=== PATIENT | male | born 1995 | race Caucasian/White ===

== ENCOUNTER 2017-07-14 00:57 | Observation (INO) | payer BC ==
[2017-07-14] VITALS (17 sets, daily range): BP systolic 115–182; BP diastolic 58–96; PULSE 65–136; RESP 16–25; TEMP 98–98.9; O2SAT 97–100
[~2017-07-14] VITALS: Ht 172.7 cm; Wt 58.5 kg
[2017-07-14] MEDS ORDERED: SODIUM CHLORIDE 0.9% FLUSH 10 ML FLUSH IVF PRN (02:30)
[2017-07-14] MEDS ORDERED: ASPIRIN 81 MG CHEW TAB PO ONE (02:30)
[2017-07-14] MEDS ORDERED: SODIUM CHLOR 0.9% 1000 ML INJ 1,000 ML IV ONE (02:30)
--- NOTE | 2017-07-14 02:43 | PD ---
HPI Chief Complaint: Chest Pain Time Seen by Provider: 02:19 Travel History International Travel<30 days: No Contact w/Intl Traveler<30days: No Traveled to known affect area: No History of Present Illness HPI 21-year-old male presents to the emergency department for complaint of chest pain. Patient has no chest pain 1 day. Patient admits to drinking alcohol on smoking cocaine and marijuana over the weekend. Patient states prior to this he has felt well. No prior history of chest pain. Patient also complains of some shortness of breath. Patient recently arrived here from [place]. Patient does note the chest pain seems to worsen with deep respiratory effort. No history of clotting disorder or autoimmune disorder or connective tissue disorder no family history of clotting disorder. No lower extremity pain or swelling. No recent injury or fall or trauma. No fever or chills. No hemoptysis. PFSH Past Medical History Narrative Medical Negative past medical history, tonsillectomy; alcohol use tobacco use substance use; nursing notes reviewed Medical History: Denies Significant Hx Diminished Hearing: No Immunizations Current: Yes Tetanus Vaccination: < 5 Years Influenza Vaccination: No Past Surgical History Tonsillectomy: Yes (AND ADNOIDS) Social History Alcohol Use: Yes Tobacco Use: Yes (CHEWS 1/2 CAN A DAY) Substance Use: Yes Allergies-Medications (Allergen,Severity, Reaction): Coded Allergies: No Known Allergies (Unverified , 07/14/17) Reported Meds & Prescriptions Reported Meds & Active Scripts Active No Active Prescriptions or Reported Medications Review of Systems Except as stated in HPI: all other systems reviewed are Neg Physical Exam Narrative GENERAL: Well-developed well-nourished male in no acute distress no respiratory distress; GCS 15 SKIN: Warm and dry. HEAD: Normocephalic. EYES: No scleral icterus. No injection or drainage. NECK: Supple, trachea midline. No JVD or lymphadenopathy. CARDIOVASCULAR: Increased regular rate and rhythm without murmurs, gallops, or rubs. RESPIRATORY: Breath sounds equal bilaterally. No accessory muscle use. GASTROINTESTINAL: Abdomen soft, non-tender, nondistended. MUSCULOSKELETAL: No cyanosis, or edema. Radial and dorsalis pedis pulses 2+ to palpation bilaterally. No Homans sign no posterior calf cording. BACK: Nontender without obvious deformity. No CVA tenderness. Data Data Last Documented VS Vital Signs Date Time Temp Pulse Resp B/P (MAP) Pulse Ox O2 Delivery O2 Flow Rate FiO2 07/14/17 05:15 87 18 98 Room Air 07/14/17 05:15 123/76 (92) 07/14/17 01:06 98.9 Orders Orders Electrocardiogram (07/14/17 02:19) Basic Metabolic Panel (Bmp) (07/14/17 02:19) Ckmb (Isoenzyme) Profile (07/14/17 02:19) Complete Blood Count With Diff (07/14/17 02:19) D-Dimer (07/14/17 02:19) Magnesium (Mg) (07/14/17 02:19) Prothrombin Time / Inr (Pt) (07/14/17 02:19) Act Partial Throm Time (Ptt) (07/14/17 02:19) Troponin I (07/14/17 02:19) Chest, Single Ap (07/14/17 02:19) Ecg Monitoring (07/14/17 02:19) Bilateral Bp Monitoring (07/14/17 02:19) Iv Access Insert/Monitor (07/14/17 02:19) Oximetry (07/14/17 02:19) Oxygen Administration (07/14/17 02:19) Aspirin Chew (Aspirin Chew) (07/14/17 02:30) Sodium Chloride 0.9% Flush (Ns Flush) (07/14/17 02:30) Sodium Chlor 0.9% 1000 Ml Inj (Ns 1000 M (07/14/17 02:30) Alcohol (Ethanol) (07/14/17 02:19) Drug Screen, Random Urine (07/14/17 02:19) CKMB (07/14/17 02:25) CKMB% (07/14/17 02:25) Ct Thorax/ Chest Wo Iv Contras (07/14/17 ) Place In Observation (07/14/17 ) Vital Signs (Adult) Q4H (07/14/17 05:13) Activity Oob With Assistance (07/14/17 05:13) Door Framer / Telemetry .CONTINUOUS (07/14/17 05:13) Diet Heart Healthy (07/14/17 Breakfast) Sodium Chloride 0.9% Flush (Ns Flush) (07/14/17 05:15) Sodium Chloride 0.9% Flush (Ns Flush) (07/14/17 09:00) Basic Metabolic Panel (Bmp) (07/15/17 06:00) Complete Blood Count With Diff (07/15/17 06:00) Resp Oxygen Danis C Titrat 1-4 L (07/14/17 ) Case Management Consult (07/14/17 05:13) Naloxone Inj (Narcan Inj) (07/14/17 05:15) Admit Order (Ed Use Only) (07/14/17 ) Door Framer / Telemetry AUDI.Q8H (07/14/17 05:28) Diet Npo (07/14/17 Breakfast) Activity Bed Rest (07/14/17 05:28) Notify Dr: Other (07/14/17 05:28) Labs Laboratory Tests Test 07/14/17 02:25 White Blood Count 12.6 TH/MM3 Red Blood Count 5.49 MIL/MM3 Hemoglobin 16.7 GM/DL Hematocrit 47.5 % Mean Corpuscular Volume 86.6 FL Mean Corpuscular Hemoglobin 30.4 PG Mean Corpuscular Hemoglobin Concent 35.1 % Red Cell Distribution Width 12.9 % Platelet Count 385 TH/MM3 Mean Platelet Volume 7.9 FL Neutrophils (%) (Auto) 68.6 % Lymphocytes (%) (Auto) 20.8 % Monocytes (%) (Auto) 9.7 % Eosinophils (%) (Auto) 0.4 % Basophils (%) (Auto) 0.5 % Neutrophils # (Auto) 8.6 TH/MM3 Lymphocytes # (Auto) 2.6 TH/MM3 Monocytes # (Auto) 1.2 TH/MM3 Eosinophils # (Auto) 0.1 TH/MM3 Basophils # (Auto) 0.1 TH/MM3 CBC Comment DIFF FINAL Differential Comment Prothrombin Time 10.7 SEC Prothromb Time International Ratio 1.1 RATIO Activated Partial Thromboplast Time 28.6 SEC D-Dimer Quantitative (PE/DVT) LESS THAN 0.19 MG/L FEU Blood Urea Nitrogen 10 MG/DL Creatinine 0.91 MG/DL Random Glucose 91 MG/DL Calcium Level 10.0 MG/DL Magnesium Level 2.1 MG/DL Sodium Level 136 MEQ/L Potassium Level 3.5 MEQ/L Chloride Level 101 MEQ/L Carbon Dioxide Level 23.9 MEQ/L Anion Gap 11 MEQ/L Estimat Glomerular Filtration Rate 106 ML/MIN Total Creatine Kinase 264 U/L Creatine Kinase MB 2.9 NG/ML Troponin I LESS THAN 0.02 NG/ML Urine Opiates Screen NEG Urine Barbiturates Screen NEG Urine Amphetamines Screen NEG Urine Benzodiazepines Screen NEG Urine Cocaine Screen POS Urine Cannabinoids Screen POS Ethyl Alcohol Level LESS THAN 3 MG/DL MDM Medical Decision Making Medical Screen Exam Complete: Yes Emergency Medical Condition: Yes Medical Record Reviewed: Yes Interpretation(s) EKG: Sinus tachycardia rate [address] elevation injury pattern or ectopy noted Last Impressions Chest X-Ray 07/14/17 0219 Signed Impressions: Service Date/Time: Friday, July 14, 2017 02:28 - CONCLUSION: 1. Findings suggest pneumomediastinum. 2. The lungs are clear. No evidence of pneumothorax. Bryan Frias MD Chest CT 07/14/17 0000 Signed Impressions: Service Date/Time: Friday, July 14, 2017 03:50 - CONCLUSION: 1. Pneumomediastinum. 2. The lungs are clear. No evidence of pneumothorax. Bryan Frias MD CBC & BMP Diagram 07/14/17 02:25 Calcium Level 10.0, Magnesium Level 2.1 Vital Signs Date Time Temp Pulse Resp B/P (MAP) Pulse Ox O2 Delivery O2 Flow Rate FiO2 07/14/17 05:15 87 18 98 Room Air 07/14/17 05:15 87 16 123/76 (92) 98 Room Air 07/14/17 03:25 98 16 135/72 (93) 99 Room Air 07/14/17 02:55 100 18 154/90 (111) 99 Room Air 07/14/17 02:42 102 18 155/81 (105) 99 Room Air 162/85 (110) 07/14/17 02:40 18 99 Room Air 07/14/17 02:40 99 Room Air 07/14/17 02:25 102 18 162/85 (110) 98 Room Air 07/14/17 01:38 107 18 158/95 (116) 99 Room Air 07/14/17 01:32 107 18 99 Room Air 07/14/17 01:06 98.9 136 20 182/96 (124) 99 Urine drug screen positive for cocaine and cannabinoids Troponin I less than 0.02, not elevated D-dimer 0.19, not elevated Differential Diagnosis Chest pain, atypical chest pain, ACS, DC, PE, polysubstance ingestion thorax, pneumonia Narrative Course Patient placed on cardiac cath rn with continuous pulse oximetry IV access obtained specimens collected and sent for resulting Physician Communication Physician Communication discussed with Dr Bustillos--step down admit to [facility] service Diagnosis Primary Impression: Pneumomediastinum Additional Impression: Polysubstance abuse Scripts No Active Prescriptions or Reported Meds Jnenifer Bauman MD Jul 14, 2017 02:43
[2017-07-14 02:50] LABS: AUTOMATED NEUTROPHIL # 8.6 TH/MM3 (1.8-7.7); BASOPHIL # 0.1 TH/MM3 (0-0.2); BASOPHIL % 0.5 % (0.0-2.0); EOSINOPHIL # 0.1 TH/MM3 (0-0.4); EOSINOPHIL % 0.4 % (0.0-4.0); HEMATOCRIT 47.5 % (39.0-51.0); HEMOGLOBIN 16.7 GM/DL (13.0-17.0); LYMPH % 20.8 % (9.0-44.0); LYMPHOCYTE # 2.6 TH/MM3 (1.0-4.8); MEAN CELL VOLUME 86.6 FL (80.0-100.0); MEAN CORPUSCULAR HEMOGLOBIN 30.4 PG (27.0-34.0); MEAN CORPUSCULAR HGB CONC 35.1 % (32.0-36.0); MEAN PLATELET VOLUME 7.9 FL (7.0-11.0); MONO % 9.7 % (0.0-8.0); MONOCYTE # 1.2 TH/MM3 (0-0.9); NEUT % 68.6 % (16.0-70.0); PLATELET COUNT 385 TH/MM3 (150-450); RED BLOOD COUNT 5.49 MIL/MM3 (4.50-5.90); RED CELL DISTRIBUTION WIDTH 12.9 % (11.6-17.2); WHITE BLOOD COUNT 12.6 TH/MM3 (4.0-11.0)
[2017-07-14 02:55] LABS: CHLORIDE 101 MEQ/L (98-107); SODIUM (NA) 136 MEQ/L (136-145)
[2017-07-14 02:59] LABS: BICARBONATE 23.9 MEQ/L (21.0-32.0); BLOOD UREA NITROGEN 10 MG/DL (7-18); GLUCOSE,RANDOM 91 MG/DL (74-106); MAGNESIUM 2.1 MG/DL (1.5-2.5)
[2017-07-14 03:02] LABS: CREATININE 0.91 MG/DL (0.60-1.30); GLOMERULAR FILTRATION RATE 106 ML/MIN (>89)
[2017-07-14 03:07] LABS: TROPONIN I LESS THAN 0.02 NG/ML (0.02-0.05)
[2017-07-14 03:12] LABS: INTERNATIONAL NORMALIZED RATIO 1.1 RATIO; PROTHROMBIN TIME - PATIENT 10.7 SEC (9.8-11.6)
--- NOTE | 2017-07-14 03:16 | RADRPT ---
EXAM DATE/TIME: 07/14/2017 02:28 [facility] COMPARISON: No previous studies available for comparison. INDICATIONS : Chest tightness and shortness of breath. MEDICAL HISTORY : None. SURGICAL HISTORY : None. ENCOUNTER: Initial ACUITY: 1 day PAIN SCORE: 2/10 LOCATION: Bilateral chest FINDINGS: Multiple vertical linear lucencies project over the upper thoracic mediastinum and there appears to b e a pleural reflection tracking along the left heart border. These findings suggest a pneumomediasti num. The lungs are clear. Both hemidiaphragms well delineated. No evidence pneumothorax. The hear t is normal in size. CONCLUSION: 1. Findings suggest pneumomediastinum. 2. The lungs are clear. No evidence of pneumothorax. Bryan Frias MD on July 14, 2017 at 3:13 Board Certified Radiologist. This report was verified electronically.
[2017-07-14 03:26] LABS: D-DIMER LESS THAN 0.19 MG/L FEU (0.00-0.50)
--- NOTE | 2017-07-14 04:27 | RADRPT ---
EXAM DATE/TIME: 07/14/2017 03:50 [facility] COMPARISON: No previous studies available for comparison. INDICATIONS : Evaluate for pneumomediastinum. Sternal chest pain. Labored breathing. RADIATION DOSE: 7.15 CTDIvol (mGy) MEDICAL HISTORY : None SURGICAL HISTORY : None. ENCOUNTER: Initial ACUITY: 1 day PAIN SCALE: 5/10 LOCATION: chest sternal TECHNIQUE: Volumetric scanning of the chest was performed. Using automated exposure control and adjustment of t he mA and/or kV according to patient size, radiation dose was kept as low as reasonably achievable to obtain optimal diagnostic quality images. DICOM format image data is available electronically for r eview and comparison. Follow-up recommendations for detected pulmonary nodules are based at a minimum on nodule size and pa tient risk factors according to Fleischner Society Guidelines. FINDINGS: LUNGS: There is no consolidation or pneumothorax. No concerning pulmonary nodule is visualized. PLEURAE: There is no pleural thickening or pleural effusion. No evidence of pneumothorax. MEDIASTINUM: There is pneumomediastinum which tracks from the lower neck down to the level of the diaphragmatic cr ura. Air does track to the base of the pericardium as well. No evidence of mediastinal adenopathy. AXILLAE: Within normal limits. No lymphadenopathy. MUSCULOSKELETAL: No fractures seen. MISCELLANEOUS: The visualized upper abdominal organs demonstrate no acute abnormality. CONCLUSION: 1. Pneumomediastinum. 2. The lungs are clear. No evidence of pneumothorax. Bryan Frias MD on July 14, 2017 at 4:19 Board Certified Radiologist. This report was verified electronically.
[2017-07-14] MEDS ORDERED: SODIUM CHLORIDE 0.9% FLUSH 10 ML FLUSH IV FLUSH PRN (05:15)
[2017-07-14] MEDS ORDERED: NALOXONE HCL 0.4 MG/ML AMP IV PUSH PRN (05:15)
[2017-07-14] MEDS ORDERED: DIATRIZOATE MEGLUM/DIATRIZOATE SOD 120 ML BTL (for RAD DIAG) PO ONE (05:34)
--- NOTE | 2017-07-14 10:24 | HHI.HP ---
[facility] Service [facility] Primary Care Physician Non-Staff Admission Diagnosis pneumomediastinum; substance use Diagnoses: Chief Complaint: Chest pain Travel History International Travel<30 Days: No Contact w/Intl Traveler <30 Da: No Traveled to Known Affected Are: No History of Present Illness 21-year-old male with no significant past medical history who presents with a 1 day history of sharp constant nonradiating substernal chest pain worse with deep breathing beginning yesterday afternoon. He also reports shortness of breath, fatigue, anterior neck fullness without. He does report a slight nonproductive cough yesterday but nothing he would consider significant -his cough has resolved. Denies any hemoptysis. Denies any fevers, chills. Denies any injuries. Patient is on spring from [place]. He has been drinking heavily, took cocaine for the first time in a while Thursday night and yesterday morning. He denies any nausea, vomiting. Review of Systems Except as stated in HPI: all other systems reviewed are Neg Past Family Social History Past Medical History History of cocaine use in the past and present Past Surgical History Tonsillectomy and adenoidectomy Reported Medications No Active Prescriptions or Reported Medications Allergies: Coded Allergies: No Known Allergies (Unverified , 07/14/17) Family History Adopted Social History Patient chews tobacco. No smoking. Counseled on cessation Physical Exam Vital Signs Vital Signs Date Time Temp Pulse Resp B/P (MAP) Pulse Ox O2 Delivery O2 Flow Rate FiO2 07/14/17 06:55 Room Air 21 07/14/17 06:55 65 16 115/70 (85) 97 Room Air 07/14/17 06:10 74 16 123/58 (79) 100 Room Air 07/14/17 06:10 100 21 07/14/17 05:15 87 18 98 Room Air 07/14/17 05:15 87 16 123/76 (92) 98 Room Air 07/14/17 03:25 98 16 135/72 (93) 99 Room Air 07/14/17 02:55 100 18 154/90 (111) 99 Room Air 07/14/17 02:42 102 18 155/81 (105) 99 Room Air 162/85 (110) 07/14/17 02:40 18 99 Room Air 07/14/17 02:40 99 Room Air 07/14/17 02:25 102 18 162/85 (110) 98 Room Air 07/14/17 01:38 107 18 158/95 (116) 99 Room Air 07/14/17 01:32 107 18 99 Room Air 07/14/17 01:06 98.9 136 20 182/96 (124) 99 Physical Exam GENERAL: This is a well-nourished, well-developed patient, in no apparent distress. Talking full sentences comfortably. Alert and oriented 4. SKIN: No rashes, ecchymoses or lesions. Cool and dry. HEAD: Atraumatic. Normocephalic. No temporal or scalp tenderness. EYES: Pupils equal round and reactive. Extraocular motions intact. No scleral icterus. No injection or drainage. ENT: Nose without bleeding, purulent drainage or septal hematoma. Throat without erythema, tonsillar hypertrophy or exudate. Uvula midline. Airway patent. NECK: Trachea midline. No JVD or lymphadenopathy. Supple, nontender, no meningeal signs. Crepitus in bilateral anterior neck. Nontender CARDIOVASCULAR: Regular rate and rhythm without murmurs, gallops, or rubs. RESPIRATORY: Clear to auscultation. Breath sounds equal bilaterally. No wheezes , rales, or rhonchi. GASTROINTESTINAL: Abdomen soft, non-tender, nondistended. No hepato-splenomegaly , or palpable masses. No guarding. MUSCULOSKELETAL: Extremities without clubbing, cyanosis, or edema. No joint tenderness, effusion, or edema noted. No calf tenderness. Negative Homans sign bilaterally. NEUROLOGICAL: Awake and alert. Cranial nerves II through XII intact. Motor and sensory grossly within normal limits. Five out of 5 muscle strength in all muscle groups. Normal speech. Laboratory Laboratory Tests Test 07/14/17 02:25 White Blood Count 12.6 Red Blood Count 5.49 Hemoglobin 16.7 Hematocrit 47.5 Mean Corpuscular Volume 86.6 Mean Corpuscular Hemoglobin 30.4 Mean Corpuscular Hemoglobin Concent 35.1 Red Cell Distribution Width 12.9 Platelet Count 385 Mean Platelet Volume 7.9 Neutrophils (%) (Auto) 68.6 Lymphocytes (%) (Auto) 20.8 Monocytes (%) (Auto) 9.7 Eosinophils (%) (Auto) 0.4 Basophils (%) (Auto) 0.5 Neutrophils # (Auto) 8.6 Lymphocytes # (Auto) 2.6 Monocytes # (Auto) 1.2 Eosinophils # (Auto) 0.1 Basophils # (Auto) 0.1 CBC Comment DIFF FINAL Differential Comment Prothrombin Time 10.7 Prothromb Time International Ratio 1.1 Activated Partial Thromboplast Time 28.6 D-Dimer Quantitative (PE/DVT) LESS THAN 0.19 Blood Urea Nitrogen 10 Creatinine 0.91 Random Glucose 91 Calcium Level 10.0 Magnesium Level 2.1 Sodium Level 136 Potassium Level 3.5 Chloride Level 101 Carbon Dioxide Level 23.9 Anion Gap 11 Estimat Glomerular Filtration Rate 106 Total Creatine Kinase 264 Creatine Kinase MB 2.9 Troponin I LESS THAN 0.02 Urine Opiates Screen NEG Urine Barbiturates Screen NEG Urine Amphetamines Screen NEG Urine Benzodiazepines Screen NEG Urine Cocaine Screen POS Urine Cannabinoids Screen POS Ethyl Alcohol Level LESS THAN 3 Result Diagram: 07/14/1722407/14/17224 Caprini VTE Risk Assessment Caprini VTE Risk Assessment: No/Low Risk (score <= 1) Caprini Risk Assessment Model Point Value = 1 Point Value = 2 Point Value = 3 Point Value = 5 Age 41-60 Minor surgery BMI > 25 kg/m2 Swollen legs Varicose veins or History of unexplained or recurrent spontaneous Oral contraceptives or hormone replacement Sepsis (< 1 month) Serious lung disease, including pneumonia (< 1 month) Abnormal pulmonary function Acute myocardial infarction Congestive heart failure (< 1 month) History of inflammatory bowel disease Medical patient at bed rest Age 61-74 Arthroscopic surgery Major open surgery (> 45 min) Laparoscopic surgery (> 45 min) Malignancy Confined to bed (> 72 hours) Immobilizing plaster cast Central venous access Age >= 75 History of VTE Family history of VTE Factor V Leiden Prothrombin [id number] Lupus anticoagulant Anticardiolipin antibodies Elevated serum homocysteine Heparin-induced thrombocytopenia Other congenital or acquired thrombophilia Stroke (< 1 month) Elective arthroplasty Hip, pelvis, or leg fracture Acute spinal cord injury (< 1 month) Prophylaxis Regimen Total Risk Factor Score Risk Level Prophylaxis Regimen 0-1 Low Early ambulation 2 Moderate Order ONE of the following: *Sequential Compression Device (SCD) *Heparin 5000 units SQ BID 3-4 Higher Order ONE of the following medications: *Heparin 5000 units SQ TID *Enoxaparin/Lovenox 40 mg SQ daily (WT < 150 kg, CrCl > 30 mL/min) *Enoxaparin/Lovenox 30 mg SQ daily (WT < 150 kg, CrCl > 10-29 mL/min) *Enoxaparin/Lovenox 30 mg SQ BID (WT < 150 kg, CrCl > 30 mL/min) AND/OR *Sequential Compression Device (SCD) 5 or more Highest Order ONE of the following medications: *Heparin 5000 units SQ TID (Preferred with Epidurals) *Enoxaparin/Lovenox 40 mg SQ daily (WT < 150 kg, CrCl > 30 mL/min) *Enoxaparin/Lovenox 30 mg SQ daily (WT < 150 kg, CrCl > 10-29 mL/min) *Enoxaparin/Lovenox 30 mg SQ BID (WT < 150 kg, CrCl > 30 mL/min) AND *Sequential Compression Device (SCD) Assessment and Plan Assessment and Plan //Chest pain //acute pneumomediastinum -certainly cocaine could cause chest pain with tachycardia in the 130s on admission, however patient is no longer tachycardic and still with chest pain. = D-dimer negative. = Unremarkable EKG except for tachycardia. Troponin negative 1. Given time course this rules out cardiac chest pain -CT chest with pneumomediastinum. Pneumopericardium reported on CT. Personally visualized. Will discuss with cardiothoracic surgery. Continue close monitoring. //Cocaine abuse. Cessation counseling provided //Chewing tobacco use. Cessation counseling provided. //Binge drinking disorder. Patient denies any issues with withdrawal. Patient counseled on cessation. //SIRS criteria. Leukocytosis of 12, tachycardia in the 100. This is likely secondary to pneumomediastinum. No signs of infection. Continue to monitor closely. Discussed Condition With Patient, nurse Physician Certification 2 Midnight Certification Type: Continued Stay Order for Inpatient Services OBSERVATION ONLY Estimated LOS (days): 2 OBSERVATION ONLY Post-Hospital Plan: Home Notes: OBSERVATION ONLY Scot Taylor MD Jul 14, 2017 10:24
[2017-07-14] MEDS: DEXT 5% IV SCH (12:17)
[2017-07-14] MEDS: NACL 0.45% IV SCH (12:17)
[2017-07-14] MEDS: SODIUM CHLORIDE 0.9% FLUSH 10 ML FLUSH IV FLUSH SCH ×2 (12:17→21:00)
[2017-07-14] MEDS: POTASSIUM CHLORIDE IV SCH (12:17)
--- NOTE | 2017-07-14 13:36 | RADRPT ---
EXAM DATE/TIME: 07/14/2017 09:54 [facility] COMPARISON: No previous studies available for comparison. INDICATIONS : Pneumomediastinum; chest pains since yesterday. FLUORO TIME: 1.3 minutes IMAGE COUNT: 18 CONTRAST: 1. Gastrografin (Diatrizoate Meglumine and Diatrizoate Sodium) Liquid E-Z Paque Barium Sulfate (60% w/v, 41% w.w) MEDICAL HISTORY : None. SURGICAL HISTORY : None. ENCOUNTER: Subsequent ACUITY: 2 days PAIN SCORE: 7/10 LOCATION: Esophagus. FINDINGS: The patient was given Gastrografin contrast initially. The esophagus appeared to be grossly intact wi thout evidence of extravasation. Thin barium contrast was then administered and the esophagus was latoya luated in multiple projections revealing a normal caliber and appearance throughout with no evidence of new coastal disruption. CONCLUSION: Unremarkable examination of the esophagus. Noel Hampton MD on July 14, 2017 at 13:33 Board Certified Radiologist. This report was verified electronically.
--- NOTE | 2017-07-14 14:56 | EKG ---
Date Performed: 07/14/2017 Time Performed: 02:38:47 PTAGE: 21 years EKG: SINUS TACHYCARDIA ABNORMAL RHYTHM ECG NO PREVIOUS TRACING DOCTOR: Errol Mejia Interpretating Date/Time 07/14/2017 14:54:53
[2017-07-14] MEDS: ACETAMINOPHEN 325 MG TAB PO PRN (19:49)
[2017-07-15] VITALS: BP 124/62; PULSE 76; RESP 19; TEMP 98.3; O2SAT 99
[2017-07-15] MEDS: NACL 0.45% IV SCH (00:12)
[2017-07-15] MEDS: POTASSIUM CHLORIDE IV SCH (00:12)
[2017-07-15] MEDS: DEXT 5% IV SCH (00:12)
[2017-07-15 04:00] VITALS: BP 129/69; PULSE 70; RESP 16; TEMP 98.7; O2SAT 99
[2017-07-15] MEDS: ACETAMINOPHEN 325 MG TAB PO PRN (04:32)
[2017-07-15 04:59] LABS: AUTOMATED NEUTROPHIL # 5.3 TH/MM3 (1.8-7.7); BASOPHIL % 0.5 % (0.0-2.0); EOSINOPHIL # 0.2 TH/MM3 (0-0.4); EOSINOPHIL % 2.2 % (0.0-4.0); HEMATOCRIT 45.5 % (39.0-51.0); LYMPH % 30.7 % (9.0-44.0); LYMPHOCYTE # 2.8 TH/MM3 (1.0-4.8); MEAN CELL VOLUME 88.6 FL (80.0-100.0); MEAN CORPUSCULAR HEMOGLOBIN 31.1 PG (27.0-34.0); MEAN CORPUSCULAR HGB CONC 35.1 % (32.0-36.0); MONO % 9.9 % (0.0-8.0); MONOCYTE # 0.9 TH/MM3 (0-0.9); NEUT % 56.7 % (16.0-70.0); PLATELET COUNT 320 TH/MM3 (150-450); RED BLOOD COUNT 5.14 MIL/MM3 (4.50-5.90); RED CELL DISTRIBUTION WIDTH 12.8 % (11.6-17.2); WHITE BLOOD COUNT 9.2 TH/MM3 (4.0-11.0)
[2017-07-15 05:44] LABS: BICARBONATE 26.2 MEQ/L (21.0-32.0)
--- NOTE | 2017-07-15 06:52 | RADRPT ---
EXAM DATE/TIME: 07/15/2017 06:26 [facility] COMPARISON: CHEST SINGLE AP, July 14, 2017, 2:28. INDICATIONS : Short of breath. MEDICAL HISTORY : None. SURGICAL HISTORY : None. ENCOUNTER: Subsequent ACUITY: 2 days PAIN SCORE: 0/10 LOCATION: Bilateral chest FINDINGS: Stable appearance to the pneumomediastinum with lucency along left heart border and in the superior m ediastinum. No evidence of pneumothorax. The lungs are symmetrically aerated and clear. No evidenc e of pleural effusion. CONCLUSION: 1. The lungs are clear. 2. Stable pneumomediastinum. Bryan Frias MD on July 15, 2017 at 6:46 Board Certified Radiologist. This report was verified electronically.
[2017-07-15 07:56] VITALS: O2SAT 99
[2017-07-15 07:57] VITALS: BP 129/65; PULSE 80; RESP 30; TEMP 98.1
[2017-07-15] MEDS: SODIUM CHLORIDE 0.9% FLUSH 10 ML FLUSH IV FLUSH SCH (07:59)
[2017-07-15 08:00] VITALS: PULSE 76
[2017-07-15 09:00] VITALS: PULSE 54
--- NOTE | 2017-07-15 11:11 | HHI.DCPOC ---
Discharge Care Plan Diagnosis: (1) Polysubstance abuse (2) Pneumomediastinum Goals to Promote Your Health * To prevent worsening of your condition and complications * To maintain your health at the optimal level Directions to Meet Your Goals Take your medications as prescribed Follow your dietary instruction Follow activity as directed Keep your appointments as scheduled Take your immunizations and boosters as scheduled If your symptoms worsen call your PCP, if no PCP go to Urgent Care Center or Emergency Room Smoking is Dangerous to Your Health. Avoid second hand smoke Call the 24-hour hour crisis hotline for domestic abuse at Estephania Alexander Jul 15, 2017 11:11
--- NOTE | 2017-07-15 11:11 | HHI.PR ---
Subjective Remarks Follow up Acute pneumomediastinum. Patient seen and examined, lying in bed comfortably. Denies any new acute complaints. Chest pain resolved. Vitals are stable. Barium swallow negative. CXR stable. Labs are stable. Objective Vitals Vital Signs Date Time Temp Pulse Resp B/P (MAP) Pulse Ox O2 Delivery O2 Flow Rate FiO2 07/15/17 09:00 54 07/15/17 08:00 76 07/15/17 07:57 98.1 80 30 129/65 (86) 07/15/17 07:56 99 21 07/15/17 04:00 98.7 70 16 129/69 (89) 99 07/15/17 04:00 70 07/15/17 00:00 98.3 76 19 124/62 (82) 99 07/15/17 00:00 76 07/14/17 20:30 99 21 07/14/17 20:00 98.0 101 25 140/74 (96) 100 07/14/17 20:00 101 07/14/17 16:00 94 07/14/17 16:00 98.2 94 16 139/86 (103) 99 07/14/17 14:12 89 07/14/17 12:00 98.3 80 18 140/81 (100) 98 07/14/17 11:18 85 16 141/71 (94) 98 I/O 07/14/17 07/14/17 07/14/17 07/15/17 07/15/17 07/15/17 07:00 15:00 23:00 07:00 15:00 23:00 Intake Total 1000 ml 1000 ml Balance 1000 ml 1000 ml Intake Oral 0 ml IV Total 1000 ml 1000 ml # Voids 2 3 # Bowel Movements 0 1 Result Diagram: 07/15/17 0420 07/15/17 0420 Imaging Last Impressions Chest X-Ray 07/15/17 0600 Signed Impressions: Service Date/Time: Saturday, July 15, 2017 06:26 - CONCLUSION: 1. The lungs are clear. 2. Stable pneumomediastinum. Bryan Frias MD Upper GI/Barium Swallow X-Ray 07/14/17 0000 Signed Impressions: Service Date/Time: Friday, July 14, 2017 09:54 - CONCLUSION: Unremarkable examination of the esophagus. Noel Hampton MD Chest CT 07/14/17 0000 Signed Impressions: Service Date/Time: Friday, July 14, 2017 03:50 - CONCLUSION: 1. Pneumomediastinum. 2. The lungs are clear. No evidence of pneumothorax. Bryan Frias MD Objective Remarks GENERAL: This is a well-nourished, well-developed patient, in no apparent distress. Talking full sentences comfortably. Alert and oriented 4. SKIN: No rashes, ecchymoses or lesions. Cool and dry. HEAD: Atraumatic. Normocephalic. No temporal or scalp tenderness. EYES: Pupils equal round and reactive. Extraocular motions intact. No scleral icterus. No injection or drainage. ENT: Nose without bleeding, purulent drainage or septal hematoma. Throat without erythema, tonsillar hypertrophy or exudate. Uvula midline. Airway patent. NECK: Trachea midline. No JVD or lymphadenopathy. Supple, nontender, no meningeal signs. Crepitus in bilateral anterior neck. Nontender CARDIOVASCULAR: Regular rate and rhythm without murmurs, gallops, or rubs. RESPIRATORY: Clear to auscultation. Breath sounds equal bilaterally. No wheezes , rales, or rhonchi. GASTROINTESTINAL: Abdomen soft, non-tender, nondistended. No hepato-splenomegaly , or palpable masses. No guarding. MUSCULOSKELETAL: Extremities without clubbing, cyanosis, or edema. No joint tenderness, effusion, or edema noted. No calf tenderness. Negative Homans sign bilaterally. NEUROLOGICAL: Awake and alert. Cranial nerves II through XII intact. Motor and sensory grossly within normal limits. Five out of 5 muscle strength in all muscle groups. Normal speech. A/P Assessment and Plan Chest pain. Resolved. Acute pneumomediastinum, stable. Certainly cocaine could cause chest pain with tachycardia in the 130s on admission, however patient is no longer tachycardic and still with chest pain. D-dimer negative. Unremarkable EKG except for tachycardia. Troponin negative 1. Given time course this rules out cardiac chest pain. CT chest with pneumomediastinum. Pneumopericardium reported on CT. Personally visualized. Attending spoke with cardiothoracic surgeon who clears him for discharge if tolerating PO, passed barium swallow and CXR clear. Passed barium swallow. CXR reviewed and stable. Symptoms resolved. Chest pain resolved. Will try eating today, and discharge if tolerating well. Recommendations to follow up with PCP. No air travel. Return to ED if symptoms worsen or persists. Encouraged to stop cocaine. Cocaine abuse. Cessation counseling provided Chewing tobacco use. Cessation counseling provided. Binge drinking disorder. Patient denies any issues with withdrawal. Patient counseled on cessation. SIRS criteria. Resolved. Leukocytosis of 12 on presentation, now 9.2, tachycardia now resolved. No signs of infection. Afebrile overnight. Discharge Planning Patient has been advised against air travel. Patient is aware and understanding. Will advise to follow up with PCP. and Return to ED if symptoms reoccur or persist. Estephania Alexander Jul 15, 2017 11:11
== END 2017-07-15 13:35 | disposition home or self-care (01) ==
LOC: PHED 00:57 → PHEDA 05:33 → PHICU 11:15
PROVIDERS: ADMIT Hospitalist; ATTEND Hospitalist
DX: R07.9 Chest pain, unspecified (principal); J98.2 Interstitial emphysema; R06.02 Shortness of breath; R05 Cough; R00.0 Tachycardia, unspecified; R94.31 Abnormal electrocardiogram [ECG] [EKG]; D72.829 Elevated white blood cell count, unspecified; F14.10 Cocaine abuse, uncomplicated; F17.220 Nicotine dependence, chewing tobacco, uncomplicated
CPT/HCPCS: 71045; 71250; 74220; 80048; 80307; 82550; 82552; 83735; 84484; 85025; 85379; 85610; 85730; 93005; 96360; 99285; G0378; J3480; J7030; Q9963